=== PATIENT | male | born 1990 | race Caucasian/White ===

== ENCOUNTER 2022-05-03 01:44 | Emergency (ER) | payer OTHER ==
[~2022-05-03] VITALS: Ht 177.8 cm; Wt 74.8 kg
[2022-05-03 01:50] VITALS: BP 118/63
--- NOTE | 2022-05-03 01:53 | NUR ---
TO LOBBY A/W BED AMBULATORY
--- NOTE | 2022-05-03 03:37 | NUR ---
Dr. Pinto assessing patient.
--- NOTE | 2022-05-03 03:40 | NUR ---
Patient resting in bed, A/Ox4, chest rise and fall symmetrical, no s/s of distress, patient on monitor.
[2022-05-03] MEDS ORDERED: diazePAM 5 MG TAB PO ONE (03:55)
[2022-05-03] MEDS ORDERED: KETOROLAC 30 MG/ML VIAL IM ONE (03:55)
--- NOTE | 2022-05-03 05:00 | NUR ---
Patient resting in bed, A/Ox4, chest rise and fall symmetrical, no s/s of distress, patient on monitor.
[2022-05-03] MEDS ORDERED: NAPR-54 PO (05:49)
[2022-05-03] MEDS ORDERED: CYCL-711 PO (05:49)
[2022-05-03 06:10] VITALS: BP 118/75
== END 2022-05-03 06:05 | disposition home or self-care (01) ==
LOC: MED 01:44
DX: S39.012A Strain of muscle, fascia and tendon of lower back, initial encounter (principal); S34.109A Unspecified injury to unspecified level of lumbar spinal cord, initial encounter; W18.30XA Fall on same level, unspecified, initial encounter; Y93.89 Activity, other specified; Y92.89 Other specified places as the place of occurrence of the external cause; Y99.8 Other external cause status
CPT/HCPCS: 72100; 96372; 99283; J1885

== ENCOUNTER 2023-05-28 17:02 | Emergency (ER) | payer MEDICAID, OTHER ==
[~2023-05-28] VITALS: Ht 175.3 cm; Wt 72.6 kg
[~2023-05-28 17:02] MED LIST: CYCL-711 PO; NAPR-54 PO
[2023-05-28 17:09] VITALS: BP 145/88; PULSE 64; RESP 18; TEMP 98.1; O2SAT 100
[2023-05-28] MEDS: LIDOCAINE MPF 1% 10 MG/ML VIAL INJ ONE (17:43)
[2023-05-28] MEDS ORDERED: SULF-59 PO (18:03)
[2023-05-28] MEDS ORDERED: CEPH-588 PO (18:03)
== END 2023-05-28 18:10 | disposition home or self-care (01) ==
LOC: MED 17:02
DX: L02.11 Cutaneous abscess of neck (principal); Z79.899 Other long term (current) drug therapy
CPT/HCPCS: 10060; 99283; J2001

== ENCOUNTER 2023-10-01 14:41 | Emergency (ER) | payer SELFPAY ==
[~2023-10-01] VITALS: Ht 175.3 cm; Wt 78.9 kg
[~2023-10-01 14:41] MED LIST changes: +CEPH-588 PO; +NAPR-337 PO; -NAPR-54 PO; +SULF-59 PO
[2023-10-01 14:46] VITALS: BP 121/60; PULSE 79; RESP 20; TEMP 98.7; O2SAT 98
[2023-10-01] MEDS ORDERED: LOPE1TAB14 PO (15:25)
[2023-10-01] MEDS ORDERED: BEN10 PO (15:25)
[2023-10-01] MEDS ORDERED: ONDA-188 SL (15:25)
[2023-10-01] MEDS: ONDANSETRON 4 MG ODT PO ONE (15:32)
[2023-10-01] MEDS: DICYCLOMINE 20 MG/2 ML VIAL IM ONE (15:32)
[2023-10-01 15:36] VITALS: BP 121/60; PULSE 79; RESP 20; TEMP 98.7; O2SAT 98
== END 2023-10-01 15:36 | disposition home or self-care (01) ==
LOC: MED 14:41
DX: A08.4 Viral intestinal infection, unspecified (principal); R03.0 Elevated blood-pressure reading, without diagnosis of hypertension; Z79.1 Long term (current) use of non-steroidal anti-inflammatories (NSAID); Z79.2 Long term (current) use of antibiotics; Z79.899 Other long term (current) drug therapy
CPT/HCPCS: 96372; 99283; J0500; Q0162